=== PATIENT | male | born 1985 | race Asian ===

== ENCOUNTER 2020-06-19 18:50 | Inpatient (IN) | payer BC, OTHER, SELFPAY ==
[~2020-06-19] VITALS: Ht 172.7 cm; Wt 83.9 kg
[2020-06-19 18:57] VITALS: BP_SYST 137
[2020-06-19 19:24] LABS: HEMATOCRIT 54.6 % (36-54); HEMOGLOBIN 18.2 g/dL (14.0-18.0); MEAN CORPUSCULAR HEMOGLOBIN 30 pg (27-31); MEAN CORPUSCULAR HGB CONC 33 % (32-36); MEAN CORPUSCULAR VOLUME 91 fL (79.0-98.0); PLATELET COUNT (AUTO) 187 K/uL (130-430); RED BLOOD CELL COUNT(AUTO) 6.01 MIL/uL (4.2-6.2); RED CELL DISTRIBUTION WIDTH 13.9 % (9.0-15.0); WHITE BLOOD COUNT (AUTO) 11.7 K/uL (4.8-10.8)
[2020-06-19] MEDS ORDERED: MAG HYDROX/AL HYDROX/SIMETH 30 ML, DICYCLOMINE HCL 20 MG, LIDOCAINE VISCOUS 2% 15ML (PO... PO ONE ×3 (19:30)
[2020-06-19 19:37] LABS: CALCIUM 9.2 mg/dL (8.4-11.0); CREATININE 1.36 mg/dL (0.55-1.30); POTASSIUM 4.4 mmol/L (3.5-5.1)
[2020-06-19 19:41] LABS: BAND % (MANUAL) 6 % (0-6); BASOPHILS % (MANUAL) 0 % (0-2); EOSINOPHILS % (MANUAL) 0 % (0-7); LYMPHOCYTES % (MANUAL) 5 % (20-46); MONOCYTES % (MANUAL) 14 % (0-11)
[2020-06-19 19:44] LABS: ALBUMIN 3.6 g/dL (3.4-4.8); TOTAL BILIRUBIN 0.5 mg/dL (0.0-1.0)
[2020-06-19] MEDS ORDERED: LORazepam 2 MG/ML VIAL IVP ONE (20:15)
[2020-06-19] MEDS ORDERED: NACL 0.9% 1,000 ML IV ONE (20:15)
[2020-06-19] MEDS ORDERED: LOSA50TA3 PO (21:41)
[2020-06-19] MEDS ORDERED: TRAZ-250 PO (21:41)
[2020-06-19] MEDS ORDERED: VIS50 PO (21:41)
[2020-06-19] MEDS ORDERED: GLUXR500 PO (21:41)
[2020-06-19] MEDS ORDERED: ANT30 PO (21:41)
[2020-06-19] MEDS ORDERED: ARIP10TA9 PO (21:41)
[2020-06-19] MEDS ORDERED: MOM PO (21:41)
[2020-06-19] MEDS ORDERED: ACET325T PO (21:41)
[2020-06-19] MEDS ORDERED: DIVA-50 PO (21:41)
[2020-06-19] MEDS ORDERED: BENZ1TAB76 PO (21:41)
[2020-06-19] MEDS ORDERED: DIVA250T PO (21:41)
[2020-06-19] MEDS ORDERED: ATOM25CA6 PO (21:41)
[2020-06-19] MEDS ORDERED: INSU100V42 (21:41)
[2020-06-20] MEDS ORDERED: NALOXONE HCL 0.4 MG/ML AMP (NARCAN) IVP PRN
[2020-06-20] MEDS ORDERED: ONDANSETRON HCL 4 MG/2 ML VIAL IVP PRN
[2020-06-20] MEDS ORDERED: ALBUTEROL SULFATE 0.083% 2.5 MG/3 ML VIAL.NEB INH PRN
[2020-06-20] MEDS ORDERED: MORPHINE 2 MG/ML INJ. SYRINGE IVP PRN
[2020-06-20] MEDS ORDERED: MORPHINE 4 MG INJ. 4 MG/ML VIAL IVP PRN
[2020-06-20] MEDS ORDERED: cefTRIAXone 1 GM IVPB PREMIX 50 ML IV SCH
[2020-06-20] MEDS ORDERED: MILK OF MAGNESIA 30 ML UDC PO PRN
[2020-06-20] MEDS ORDERED: NACL 0.9% 1,000 ML IV ONE
[2020-06-20] MEDS: NACL 0.9% 1,000 ML IV SCH ×4 (00:34→20:44)
[2020-06-20] MEDS ORDERED: cefTRIAXone 1 GM IVPB PREMIX 50 ML IV ONE (00:55)
[2020-06-20] MEDS ORDERED: LORazepam 2 MG/ML VIAL IVP ONE ×2 (02:15→02:45)
[2020-06-20 02:50] VITALS: BP_SYST 135
[2020-06-20 03:45] VITALS: BP_SYST 159
[2020-06-20 06:36] LABS: BASOPHILS % (AUTO) 0.2 % (0.0-2.0); EOSINOPHILS # (AUTO) 0.1 K/uL (0.0-0.4); EOSINOPHILS % (AUTO) 0.8 % (0.0-4.0); HEMATOCRIT 46.1 % (36-54); HEMOGLOBIN 15.3 g/dL (14.0-18.0); LYMPHOCYTES % (AUTO) 9.2 % (20.5-51.5); MEAN CORPUSCULAR HEMOGLOBIN 30 pg (27-31); MEAN CORPUSCULAR HGB CONC 33 % (32-36); MEAN CORPUSCULAR VOLUME 90 fL (79.0-98.0); MONOCYTES # (AUTO) 1.9 K/uL (0.0-1.0); MONOCYTES % (AUTO) 17.3 % (1.7-9.3); NEUTROPHILS # (AUTO) 8.1 K/uL (1.8-7.7); NEUTROPHILS % (AUTO) 72.5 % (40.0-70.0); PLATELET COUNT (AUTO) 172 K/uL (130-430); RED CELL DISTRIBUTION WIDTH 13.9 % (9.0-15.0); WHITE BLOOD COUNT (AUTO) 11.1 K/uL (4.8-10.8)
[2020-06-20 07:37] LABS: ALBUMIN 2.7 g/dL (3.4-4.8); CALCIUM 7.9 mg/dL (8.4-11.0); CREATININE 1.16 mg/dL (0.55-1.30); POTASSIUM 3.7 mmol/L (3.5-5.1); TOTAL BILIRUBIN 0.5 mg/dL (0.0-1.0)
[2020-06-20 08:00] VITALS: BP_SYST 110
[2020-06-20] MEDS ORDERED: GASTROGRAFIN 120 ML ONE (08:18)
[2020-06-20] MEDS: ARIPiprazole 5 MG TAB PO SCH ×2 (08:42→20:44)
[2020-06-20] MEDS: BENZTROPINE MESYLATE 1 MG TABLET PO SCH ×2 (08:43→20:44)
[2020-06-20] MEDS: DIVALPROEX SODIUM 500 MG TABLET( DEPAKOTE) PO SCH (08:43)
[2020-06-20 12:00] VITALS: BP_SYST 90
[2020-06-20 16:00] VITALS: BP_SYST 106
[2020-06-20 20:29] VITALS: BP_SYST 122
[2020-06-20] MEDS: traZODone HCL 50 MG TABLET (DESYREL) PO SCH (20:44)
[2020-06-20] MEDS: DIVALPROEX SODIUM 250 MG TAB.SR.24H (DEPAKOTE ER) PO SCH (20:44)
[2020-06-20] MEDS: cefTRIAXone 1 GM IVPB PREMIX 50 ML IV SCH (20:49)
[2020-06-21 00:16] VITALS: BP_SYST 132
[2020-06-21] MEDS: NACL 0.9% 1,000 ML IV SCH ×4 (03:17→20:45)
[2020-06-21 06:31] LABS: BASOPHILS % (AUTO) 0.2 % (0.0-2.0); EOSINOPHILS # (AUTO) 0.3 K/uL (0.0-0.4); EOSINOPHILS % (AUTO) 2.3 % (0.0-4.0); HEMATOCRIT 43.9 % (36-54); HEMOGLOBIN 14.4 g/dL (14.0-18.0); LYMPHOCYTES # (AUTO) 1.8 K/uL (1.0-5.5); LYMPHOCYTES % (AUTO) 13.3 % (20.5-51.5); MEAN CORPUSCULAR HEMOGLOBIN 30 pg (27-31); MEAN CORPUSCULAR HGB CONC 33 % (32-36); MEAN CORPUSCULAR VOLUME 90 fL (79.0-98.0); MONOCYTES # (AUTO) 1.8 K/uL (0.0-1.0); MONOCYTES % (AUTO) 13.8 % (1.7-9.3); NEUTROPHILS # (AUTO) 9.3 K/uL (1.8-7.7); NEUTROPHILS % (AUTO) 70.4 % (40.0-70.0); PLATELET COUNT (AUTO) 171 K/uL (130-430); RED BLOOD CELL COUNT(AUTO) 4.86 MIL/uL (4.2-6.2); RED CELL DISTRIBUTION WIDTH 13.9 % (9.0-15.0); WHITE BLOOD COUNT (AUTO) 13.2 K/uL (4.8-10.8)
[2020-06-21 06:39] LABS: ALBUMIN 2.6 g/dL (3.4-4.8); CALCIUM 7.9 mg/dL (8.4-11.0); CREATININE 0.9 mg/dL (0.55-1.30); POTASSIUM 3.7 mmol/L (3.5-5.1); TOTAL BILIRUBIN 0.3 mg/dL (0.0-1.0)
[2020-06-21 08:00] VITALS: BP_SYST 131
[2020-06-21] MEDS: BENZTROPINE MESYLATE 1 MG TABLET PO SCH ×2 (09:51→20:44)
[2020-06-21] MEDS: MAG-AL HYDROX/SIMETH 30 ML UDC PO PRN ×2 (09:51→16:36)
[2020-06-21] MEDS: ARIPiprazole 5 MG TAB PO SCH ×2 (09:52→20:44)
[2020-06-21] MEDS: DIVALPROEX SODIUM 500 MG TABLET( DEPAKOTE) PO SCH (09:52)
[2020-06-21] MEDS ORDERED: NEU300 PO (11:14)
[2020-06-21] MEDS ORDERED: KETOROLAC TROMETHAMINE 30 MG VIAL IVP PRN (12:45)
[2020-06-21 14:05] VITALS: BP_SYST 127
[2020-06-21 16:13] VITALS: BP_SYST 170
[2020-06-21 18:45] VITALS: BP_SYST 135
[2020-06-21] MEDS: traZODone HCL 50 MG TABLET (DESYREL) PO SCH (20:43)
[2020-06-21] MEDS: POLYETHYLENE GLYCOL 3350, 17 GM/ POWD.PACK PO SCH (20:43)
[2020-06-21] MEDS: DIVALPROEX SODIUM 250 MG TAB.SR.24H (DEPAKOTE ER) PO SCH (20:44)
[2020-06-21] MEDS: cefTRIAXone 1 GM IVPB PREMIX 50 ML IV SCH (20:45)
[2020-06-21 21:00] VITALS: BP_SYST 136
[2020-06-22 00:11] VITALS: BP_SYST 127
[2020-06-22] MEDS: NACL 0.9% 1,000 ML IV SCH ×3 (05:20→20:59)
[2020-06-22 08:00] VITALS: BP_SYST 138
[2020-06-22] MEDS: BENZTROPINE MESYLATE 1 MG TABLET PO SCH ×2 (08:35→20:55)
[2020-06-22] MEDS: DIVALPROEX SODIUM 500 MG TABLET( DEPAKOTE) PO SCH (08:35)
[2020-06-22] MEDS: ARIPiprazole 5 MG TAB PO SCH ×2 (08:35→20:55)
[2020-06-22] MEDS: POLYETHYLENE GLYCOL 3350, 17 GM/ POWD.PACK PO SCH ×2 (08:37→20:56)
[2020-06-22 15:18] VITALS: BP_SYST 141
[2020-06-22 16:00] VITALS: BP_SYST 141
[2020-06-22 20:00] VITALS: BP_SYST 119
[2020-06-22] MEDS: traZODone HCL 50 MG TABLET (DESYREL) PO SCH (20:55)
[2020-06-22] MEDS: DIVALPROEX SODIUM 250 MG TAB.SR.24H (DEPAKOTE ER) PO SCH (20:56)
[2020-06-22] MEDS: cefTRIAXone 1 GM IVPB PREMIX 50 ML IV SCH (20:58)
[2020-06-23] MEDS: MAG-AL HYDROX/SIMETH 30 ML UDC PO PRN (00:05)
[2020-06-23 00:10] VITALS: BP_SYST 147
[2020-06-23] MEDS: NACL 0.9% 1,000 ML IV SCH ×3 (00:12→21:20)
[2020-06-23 08:00] VITALS: BP_SYST 125
[2020-06-23] MEDS: ARIPiprazole 5 MG TAB PO SCH ×2 (08:41→22:01)
[2020-06-23] MEDS: DIVALPROEX SODIUM 500 MG TABLET( DEPAKOTE) PO SCH (08:42)
[2020-06-23] MEDS: BENZTROPINE MESYLATE 1 MG TABLET PO SCH ×2 (08:42→22:01)
[2020-06-23] MEDS: POLYETHYLENE GLYCOL 3350, 17 GM/ POWD.PACK PO SCH ×2 (09:00→22:01)
[2020-06-23 11:24] VITALS: BP_SYST 132
[2020-06-23 20:00] VITALS: BP_SYST 118
[2020-06-23] MEDS: cefTRIAXone 1 GM IVPB PREMIX 50 ML IV SCH (21:00)
[2020-06-23] MEDS: traZODone HCL 50 MG TABLET (DESYREL) PO SCH (22:01)
[2020-06-23] MEDS: ACETAMINOPHEN 325 MG TABLET PO PRN (22:02)
[2020-06-23] MEDS: DIVALPROEX SODIUM 250 MG TAB.SR.24H (DEPAKOTE ER) PO SCH (22:02)
[2020-06-24] VITALS: BP_SYST 131
[2020-06-24] MEDS: ACETAMINOPHEN 325 MG TABLET PO PRN (03:02)
[2020-06-24] MEDS: NACL 0.9% 1,000 ML IV SCH (04:00)
[2020-06-24 08:00] VITALS: BP_SYST 128
[2020-06-24] MEDS: POLYETHYLENE GLYCOL 3350, 17 GM/ POWD.PACK PO SCH (09:00)
[2020-06-24] MEDS: BENZTROPINE MESYLATE 1 MG TABLET PO SCH (09:02)
[2020-06-24] MEDS: DIVALPROEX SODIUM 500 MG TABLET( DEPAKOTE) PO SCH (09:02)
[2020-06-24] MEDS: ARIPiprazole 5 MG TAB PO SCH (09:02)
[2020-06-24 12:48] VITALS: BP_SYST 121
== END 2020-06-24 14:40 | DRG 389 ==
LOC: SED 18:50 → SMU 21:48
PROVIDERS: ADMIT Internal Medicine; ATTEND Internal Medicine
PROC: 05HY33Z Insertion of Infusion Device into Upper Vein, Percutaneous Approach (ICD-10-PCS; principal; 2020-06-21)
DX: K56.609 Unspecified intestinal obstruction, unspecified as to partial versus complete obstruction (principal); R45.851 Suicidal ideations; F41.0 Panic disorder [episodic paroxysmal anxiety]; E11.9 Type 2 diabetes mellitus without complications; F32.9 Major depressive disorder, single episode, unspecified; F29 Unspecified psychosis not due to a substance or known physiological condition; Z20.822 Contact with and (suspected) exposure to COVID-19
CPT/HCPCS: 36415; 71045; 74250-TC; 76376; 80053; 82962; 83605; 83690; 85007; 85025; 85027; 96361; 96374; 99285; C1751; J0696; J2001; J2060; J2270; J2405; J7030; Q9963